=== PATIENT | female | born 1975 | race Caucasian/White ===

== ENCOUNTER 2021-03-26 11:15 | Inpatient (IN) | payer OTHER ==
[2021-03-26] MEDS ORDERED: METOCLOPRAMIDE HCL INJECTION 10 MG/2 ML VIAL IVPB ONE (11:45)
[2021-03-26] MEDS ORDERED: SODIUM CHLORIDE 0.9% 1000 ML INFUS.BAG IV ONE (11:45)
[2021-03-26] MEDS ORDERED: ACETAMINOPHEN 1000 MG/100 ML VIAL (NON FORMULARY) IVPB ONE (11:45)
[2021-03-26] MEDS ORDERED: METOCLOPRAMIDE HCL INJECTION 10 MG/2 ML VIAL ONE (11:48)
[2021-03-26] MEDS ORDERED: ACETAMINOPHEN INJECTION 100 ML IVPB ONE (11:48)
[2021-03-26 13:59] LABS: BASO % 3.2 % (0-2.0); EOS % 0.4 % (0-4.5); HEMOGLOBIN 12.1 GM/dl (10.7-15.3); LYMPH % 22.1 % (8-40); MCH 32.2 pg (25.7-33.7); MCHC 33.5 g/dl (32.0-36.0); MEAN CELL VOLUME 96.1 fl (80-96); MEAN PLT VOLUME 7.4 fl (7.5-11.1); MONO % 6.3 % (3.8-10.2); PLATELET COUNT 340 10^3/uL (134-434); RBC 3.74 M/mm3 (3.60-5.2); RDW 12.5 % (11.6-15.6); WHITE BLOOD COUNT 6.9 K/mm3 (4.0-10.8)
[2021-03-26 14:09] LABS: CALCIUM 8.5 mg/dl (8.5-10); CREATININE 0.7 mg/dl (0.55-1.3); TOT PROT 6.9 g/dl (6.4-8.2)
[2021-03-26 14:13] LABS: ACTIVATED PTT 19.6 SECONDS (25.2-36.5)
[2021-03-26 14:17] LABS: INR 1.05 (0.82-1.09); PROTHROMBIN TIME (PATIENT) 11.7 SEC (10.2-13.0)
[2021-03-26 15:13] LABS: CHOLESTEROL 216 mg/dl (50-200); HDL CHOLESTEROL 99 mg/dl (40-60); TRIGLYCERIDES 38 mg/dl (0-150)
[2021-03-26 15:16] LABS: LDL CHOLESTEROL (ONLY SJRH) 110 mg/dL (5-100)
[2021-03-26] MEDS ORDERED: levETIRAcetam 500 MG/5 ML INJECTION VIAL IVPB ONE ×2 (16:27→16:29)
[2021-03-26] MEDS ORDERED: LORazepam 2 MG/ML SDV VIAL IVPUSH ONE (16:36)
[2021-03-26] MEDS ORDERED: LORazepam 2 MG/ML SDV VIAL ONE (16:38)
[2021-03-27 01:06] VITALS: BMI 21.1
[2021-03-27] MEDS: levETIRAcetam 500 MG TABLET (FP) PO SCH ×2 (10:42→21:00)
[2021-03-27] MEDS: ACETAMINOPHEN 500 MG TABLET (FP) PO PRN (18:06)
[2021-03-28 07:42] LABS: HEMATOCRIT 37.9 % (32.4-45.2); HEMOGLOBIN 13.1 GM/dL (10.7-15.3); MCH 32.9 pg (25.7-33.7); MCHC 34.6 g/dl (32.0-36.0); MEAN CELL VOLUME 95.1 fl (80-96); MEAN PLT VOLUME 7.1 fl (7.5-11.1); PLATELET COUNT 328 10^3/uL (134-434); RBC 3.99 M/mm3 (3.60-5.2); RDW 12.9 % (11.6-15.6); WHITE BLOOD COUNT 6.7 K/mm3 (4.0-10.0)
[2021-03-28 08:09] LABS: BLOOD UREA NITROGEN 4.8 mg/dL (7-18); MAGNESIUM 2.1 mg/dL (1.8-2.4)
[2021-03-28 08:12] LABS: CREATININE 0.7 mg/dL (0.55-1.3); PHOSPHOROUS 3.6 mg/dL (2.5-4.9)
[2021-03-28] MEDS: POLYETHYLENE GLYCOL (HEALTHYLAX) 3350 17 GM PACKET PO SCH (09:27)
[2021-03-28] MEDS: ACETAMINOPHEN 500 MG TABLET (FP) PO PRN (09:27)
[2021-03-28] MEDS: levETIRAcetam 500 MG TABLET (FP) PO SCH ×2 (09:28→21:04)
[2021-03-29 07:46] LABS: HEMOGLOBIN 13.3 GM/dL (10.7-15.3); MCH 32.5 pg (25.7-33.7); MCHC 34.2 g/dl (32.0-36.0); MEAN CELL VOLUME 94.9 fl (80-96); PLATELET COUNT 326 10^3/uL (134-434); RBC 4.11 M/mm3 (3.60-5.2); RDW 13.1 % (11.6-15.6); WHITE BLOOD COUNT 6.1 K/mm3 (4.0-10.0)
[2021-03-29 08:10] LABS: BLOOD UREA NITROGEN 8.1 mg/dL (7-18); CALCIUM 9.4 mg/dL (8.5-10.1)
[2021-03-29 08:12] LABS: MAGNESIUM 2.1 mg/dL (1.8-2.4)
[2021-03-29 08:13] LABS: CREATININE 0.9 mg/dL (0.55-1.3)
[2021-03-29 08:15] LABS: PHOSPHOROUS 4.3 mg/dL (2.5-4.9)
[2021-03-29] MEDS: POLYETHYLENE GLYCOL (HEALTHYLAX) 3350 17 GM PACKET PO SCH (09:28)
[2021-03-29] MEDS: levETIRAcetam 500 MG TABLET (FP) PO SCH (09:28)
[2021-03-29 15:27] VITALS: BP 132/78; PULSE 65; TEMP 98.3
== END 2021-03-29 18:06 | disposition home or self-care (01) | DRG 54 ==
LOC: FER 11:15 → J4S 19:34
PROVIDERS: ADMIT Internal Medicine; ATTEND Student in an Organized Health Care Education/Training Program
DX: C71.9 Malignant neoplasm of brain, unspecified (principal); G93.6 Cerebral edema; H53.8 Other visual disturbances; R56.9 Unspecified convulsions
CPT/HCPCS: 36415; 70450-TC; 70553-TC; 71045-TC-FY; 80048; 80053; 80061; 83721; 83735; 84100; 84703; 85025; 85027; 85610; 85730; 86850; 86900; 86901; 93005; 93010; 99291; A9579; C9803; J0131; U0003; U0005